=== PATIENT | male | born 1970 | race Caucasian/White ===

== ENCOUNTER 2018-12-09 09:42 | Emergency (ER) | payer OTHER ==
[~2018-12-09] VITALS: Ht 177.8 cm; Wt 91.7 kg
--- NOTE | 2018-12-09 09:42 | NUR ---
Pt BIB [facility]-Pt states woke up this morning and went to bar to get breakfast. Pt ordered drink then before drink arrived had witnessed syncopal episode. Pt was assisted to the floor by his friend, denies any pain or injury from this. EMS arrived on scene and witnessed two more syncopal episodes. Pt states he has some mild low back pain from a pulled muscle since yesterday. Pt A&O x4, NADN. Pt placed in gown, positioned for comfort in bed. Continuous heart, oxygen and BP Monitors applied, all safety measures observed.
[2018-12-09] MEDS ORDERED: SODIUM CHLORIDE FLUSH 10ML SYR IVF ONE (10:00)
[2018-12-09] MEDS ORDERED: SODIUM CHLORIDE 0.9% 1,000ML IVBOLUS ONE ×2 (10:00→12:00)
--- NOTE | 2018-12-09 10:13 | NUR ---
Pt c/o sudden onset midline CP. STAT repeat EKG completed and presented to Dr. Almazan with updated pt condition. Orders received for GI cocktail PO per Dr. Almazan.
[2018-12-09] MEDS ORDERED: MAALOX/HYOSCYAMINE/LIDOCAINE 45 ML BTL ONE (10:18)
--- NOTE | 2018-12-09 10:20 | NUR ---
Pt medicated per order, denies other needs.
[2018-12-09 10:36] LABS: BASOPHILS # (AUTO) 0.03 x10^3/uL (0-0.1); BASOPHILS % (AUTO) 1 % (0-1); EOSINOPHILS # (AUTO) 0.08 x10^3/uL (0-0.4); EOSINOPHILS % (AUTO) 2 % (1-7); LYMPHOCYTES # (AUTO) 1.21 x10^3/uL (1-3.4); LYMPHOCYTES % (AUTO) 30 % (22-44); MD NO; MEAN CORPUSCULAR HEMOGLOBIN 35.3 pg (27.5-34.5); MEAN CORPUSCULAR VOLUME 103.8 fL (81-97); MEAN PLATELET VOLUME 7.7 fL (7.4-10.4); MONOCYTES % (AUTO) 15 % (2-9); NEUTROPHILS # (AUTO) 2.16 x10^3/uL (1.8-6.8); NEUTROPHILS % (AUTO) 53 % (42-75); PLATELET COUNT 153 x10^3/uL (130-400); RED BLOOD COUNT 4.37 x10^6/uL (4.38-5.82); RED CELL DISTRIBUTION WIDTH 12.5 % (9.4-14.8)
--- NOTE | 2018-12-09 10:40 | NUR ---
Pt states pain 0/10 after GI cocktail. Pt states "I still feel like I might pass out." Verbal reassurance provided. All monitors remain in place. Pt's IV infiltrated, new PIV inserted and IVF continued. Pt denies other needs.
[2018-12-09 10:48] LABS: ALBUMIN 4.2 g/dL (3.4-5.0); ANION GAP 10 mmol/L (5-15); CALCIUM 8.7 mg/dL (8.5-10.1); CHLORIDE 107 mmol/L (98-107); CREATININE 0.86 mg/dL (0.7-1.3)
[2018-12-09 10:52] LABS: TROPONIN I < 0.015 ng/mL (0.000-0.045)
[2018-12-09] MEDS ORDERED: MAALOX/HYOSCYAMINE/LIDOCAINE 45 ML BTL PO ONE (11:00)
--- NOTE | 2018-12-09 11:25 | NUR ---
Pt resting in bed, NADN, denies pain or other needs at this time.
--- NOTE | 2018-12-09 11:42 | NUR ---
Pt with episode of emesis. Dr. Almazan updated, orders received for Zofran.
[2018-12-09] MEDS ORDERED: THIAMINE 100MG TABLET PO ONE (12:00)
[2018-12-09] MEDS ORDERED: ONDANSETRON 2MG/ML, 2ML IVPush ONE (12:00)
[2018-12-09] MEDS ORDERED: ONDANSETRON 2MG/ML, 2ML ONE (12:14)
[2018-12-09] MEDS ORDERED: THIAMINE 100MG TABLET ONE ×2 (12:14→12:52)
--- NOTE | 2018-12-09 12:15 | NUR ---
I REPORTED TO DR THAT PT HAD VOMITED APPROX 500ML AND THAT IT WAS A VIOLENT PROJECTILE TYPE OF OCCURANCE. ORDERED MEDS FOR NAUSEA AND ALSO FLUIDS FOR HYDRATION.
--- NOTE | 2018-12-09 12:39 | NUR ---
PT GIVEN MEDS FOR NAUSEA AND IS CURRENTLY RUNNING AN NS BOLUS. PT STATES HE FEELS "SPACEY AND SICK". I QUESTIONED PT REGARDING HIS ETOH HX, PT DENIES HE HAS A PROBLEM WITH ALCOHOL AND CLAIMS HE DOESN'T DRINK EVERY DAY. HOWEVER, HE DID ADMIT THAT HIS DRINKING WAS "PRETTY HEAVY" ALL DAY YESTERDAY. PT WILL NOT GIVE AN APPROXIMATE OF HIS INTAKE. VSS. NAD.
--- NOTE | 2018-12-09 13:19 | NUR ---
PT REPORTS THAT HE NO LONGER FEELS NAUSEOUS, BUT STATES THAT HE "JUST FEELS STRANGE" VSS. WILL CONTINUE TO MONITOR.
--- NOTE | 2018-12-09 14:17 | NUR ---
PT STEADY ON FEET AND "I'M READY TO GO HOME, I FEEL FINE" PT IS ALERT/ORIENTED AND ANSWERS QUESTIONS APPROP. IV REMOVED TIP INTACT. ALL DC INSTRUCTIONS EXPLAINED, PT VERBALIZED UNDERSTANDING. PT FRIEND IS DRIVING HIM HOME.
[2018-12-09 14:19] VITALS: BP 121/80
== END 2018-12-09 14:23 | disposition home or self-care (01) ==
LOC: ED 11:46
DX: R55 Syncope and collapse (principal); R42 Dizziness and giddiness; Z86.718 Personal history of other venous thrombosis and embolism
CPT/HCPCS: 36415; 71045; 80048; 82040; 84484; 85025; 93005; 96361; 96374; 99284; J2405; J7030